=== PATIENT | male | born 1960 | race Caucasian/White ===

== ENCOUNTER 2016-10-05 13:05 | Emergency (ER) | payer BC ==
--- NOTE | 2016-10-05 13:15 | ER Document Report ---
ED Medical Screen (RME) - General Stated Complaint: BLOOD PRESSURE PROBLEMS Mode of Arrival: Medic Information source: Patient Notes: Patient presents to the emergency department with concerns over his blood pressure EMS. He also complains of nausea headache. Patient does have a history of high blood pressure. He received Zofran by EMS. bp by EMS 186/110 r , last BP 159/100, pt did take lopressor this am. Pt reports PARKER better. Reports tingling in his feet after breathing fast, per patient, gone now. PCP is veronika richardson. I have greeted and performed a rapid initial assessment of this patient. A comprehensive ED assessment and evaluation of the patient, analysis of test results and completion of the medical decision making process will be conducted by additional ED providers. TRAVEL OUTSIDE OF THE [place] IN LAST 30 DAYS: No - Related Data Allergies/Adverse Reactions: Penicillins Allergy (Severe, Verified 12/27/14 09:03) Anaphylaxis transpore tape Allergy (Mild, Uncoded 12/26/14 15:06) Generalized rash Past Medical History - Past Medical History Cardiac Medical History: Reports: Hx Coronary Artery Disease, Hx Hypertension Denies: Hx Heart Attack Pulmonary Medical History: Reports: Hx Asthma - seasonal Denies: Hx Bronchitis, Hx COPD, Hx Pneumonia Neurological Medical History: Denies: Hx Cerebrovascular Accident, Hx Seizures GI Medical History: Reports: Hx Ulcer - SPASMATIC ULCER CHILD. Denies: Hx Hepatitis, Hx Hiatal Hernia Musculoskeltal Medical History: Denies Hx Arthritis Infectious Medical History: Denies: Hx Hepatitis Past Surgical History: Reports: Hx Tonsillectomy. Denies: Hx Open Heart Surgery , Hx Pacemaker - Immunizations Hx Diphtheria, Pertussis, Tetanus Vaccination: No Physical Exam - Vital signs Vitals: Temp Pulse Resp BP Pulse Ox 98.4 F 80 16 148/85 H 97 10/05/16 13:14 10/05/16 13:14 10/05/16 13:14 10/05/16 13:14 10/05/16 13:14 Course - Vital Signs Vital signs: Temp Pulse Resp BP Pulse Ox 98.4 F 80 16 148/85 H 97 10/05/16 13:14 10/05/16 13:14 10/05/16 13:14 10/05/16 13:14 10/05/16 13:14
[2016-10-05 14:46] LABS: ABSOLUTE BASOPHILS # (AUTO) 0.1 10^3/uL (0.0-0.2); ABSOLUTE EOSINOPHILS # (AUTO) 0.1 10^3/uL (0.0-0.6); ABSOLUTE LYMPHOCYTES (AUTO) 2.2 10^3/uL (0.5-4.7); ABSOLUTE NEUT (AUTO) 5.4 10^3/uL (1.7-8.2); BASOPHILS % (AUTO) 0.8 % (0-2); EOSINOPHILS % (AUTO) 1.5 % (0-6); HEMATOCRIT 41.9 % (37.9-51.0); HEMOGLOBIN 14.6 g/dL (13.5-17.0); HGB HCT DIFFERENCE 1.9; LYMPHOCYTES % (AUTO) 25.3 % (13-45); MEAN CORPUSCULAR HEMOGLOBIN 31.3 pg (27.0-33.4); MEAN CORPUSCULAR HGB CONC 34.8 g/dL (32.0-36.0); MEAN CORPUSCULAR VOLUME 90 fl (80-97); MONOCYTES % (AUTO) 11.7 % (3-13); RED BLOOD COUNT 4.66 10^6/uL (4.35-5.55); RED CELL DISTRIBUTION WIDTH 12.8 % (11.5-14.0); SEGMENTED NEUTROPHILS % (AUTO) 60.7 % (42-78); WHITE BLOOD COUNT 8.9 10^3/uL (4.0-10.5)
[2016-10-05 15:05] LABS: ALANINE AMINOTRANSFERASE 31 U/L (21-72); ALBUMIN 4.8 g/dL (3.5-5.0); ALKALINE PHOSPHATASE 62 U/L (38-126); ANION GAP 14 (5-19); ASPARTATE AMINO TRANSFERASE 36 U/L (17-59); BILIRUBIN,DIRECT 0.3 mg/dL (0.0-0.4); BILIRUBIN,TOTAL 0.6 mg/dL (0.2-1.3); BLOOD UREA NITROGEN 12 mg/dL (7-20); CALCIUM 10.2 mg/dL (8.4-10.2); CARBON DIOXIDE 27 mmol/L (22-30); CHLORIDE 104 mmol/L (98-107); CREATININE RESULT 0.82 mg/dL (0.52-1.25); GLUCOSE 99 mg/dL (75-110); POTASSIUM 4.5 mmol/L (3.6-5.0); SODIUM 144.9 mmol/L (137-145); TOTAL PROTEIN 8.1 g/dL (6.3-8.2)
--- NOTE | 2016-10-05 15:56 | EKG REPORT ---
SEVERITY:- NORMAL ECG - SINUS RHYTHM : Confirmed by: Lyssa Joyce 05-Oct-2016 15:55:52
--- NOTE | 2016-10-05 17:33 | ER Document Report ---
ED Blood Pressure Problem - General Time seen by provider: 17:21 Mode of Arrival: Medic Information source: Patient TRAVEL OUTSIDE OF THE [place] IN LAST 30 DAYS: No - HPI Patient complains to provider of: High blood pressure Onset: Other - see HPI note Associated symptoms: Chest pain, Headache, Nausea Similar symptoms previously: No Recently seen / treated by doctor: No <BENNY RIVERS - Last Filed: 10/05/16 18:10> <EUGENE STEELE - Last Filed: 10/05/16 19:42> - General Chief Complaint: High Blood Pressure Stated Complaint: BLOOD PRESSURE PROBLEMS Notes: Patient is a 56 year old male presenting to the emergency department for hypertension. Patient states his blood pressure has gradually been getting higher and it spiked today after lunch. Patient states yesterday while cleaning around his house his blood pressure was 140/100. Today at lunch it was 170 systolic, and after lunch it was 194/110. Patient states she started feeling tired, nauseated, and had a headache. Patient states he was also breathing fast and had some tingling in his feet. Patient was given zofran via EMS which relieved his nausea. Patient states he also had some slight chest discomfort. Patient denies any CAD or family history of CAD. Patient states he saw Dr. Horvath, supervisor [facility] 2 years ago and had normal nuclear and exercise stress tests. Patient states his mother had an aortic valve replaced and hypertension. Patient has hypertension, hypercholesterolemia, and GERD. Patient is allergic to penicillin. (BENNY RIVERS) - Related Data Allergies/Adverse Reactions: Penicillins Allergy (Severe, Verified 10/05/16 13:40) Anaphylaxis transpore tape Allergy (Mild, Uncoded 10/05/16 13:40) Generalized rash Past Medical History - General Information source: Patient - Social History Smoking Status: Former Smoker Cigarette use (# per day): No Chew tobacco use (# tins/day): No Frequency of alcohol use: None Drug Abuse: None Family History: None Patient has suicidal ideation: No Patient has homicidal ideation: No - Past Medical History Cardiac Medical History: Reports: Hx Coronary Artery Disease, Hx Hypertension Pulmonary Medical History: Reports: Hx Asthma - seasonal GI Medical History: Reports: Hx Ulcer - SPASMATIC ULCER CHILD Musculoskeltal Medical History: Reports Hx Arthritis Past Surgical History: Reports: Hx Abdominal Surgery - HERNIA, Hx Tonsillectomy - Immunizations Hx Diphtheria, Pertussis, Tetanus Vaccination: No <BENNY RIVERS Last Filed: 10/05/16 18:10> Review of Systems - Review of Systems Constitutional: See HPI, Malaise EENT: No symptoms reported Cardiovascular: See HPI, Chest pain Respiratory: No symptoms reported Gastrointestinal: See HPI, Nausea Genitourinary: No symptoms reported Male Genitourinary: No symptoms reported Musculoskeletal: No symptoms reported Skin: No symptoms reported Hematologic/Lymphatic: No symptoms reported Neurological/Psychological: See HPI, Headaches -: Yes All other systems reviewed and negative <BENNY RIVERS - Last Filed: 10/05/16 18:10> Physical Exam - Vital signs Interpretation: Normal - General General appearance: Appears well, Alert In distress: Mild - HEENT Head: Normocephalic, Atraumatic Eyes: Normal Pupils: PERRL Mucous membranes: Moist - Respiratory Respiratory status: No respiratory distress Chest status: Nontender Breath sounds: Normal Chest palpation: Normal - Cardiovascular Rhythm: Regular Heart sounds: Normal auscultation Murmur: No - Abdominal Inspection: Normal Distension: No distension Bowel sounds: Normal Tenderness: Nontender Organomegaly: No organomegaly - Back Back: Normal, Nontender - Extremities General upper extremity: Normal inspection, Normal ROM, Normal strength General lower extremity: Normal inspection, Normal ROM, Normal strength - Neurological Neuro grossly intact: Yes Cognition: Normal Orientation: AAOx4 [place] Coma Scale Eye Opening: Spontaneous Alejandra Coma Scale Verbal: Oriented Alejandra Coma Scale Motor: Obeys Commands Alejandra Coma Scale Total: 15 Speech: Normal Sensory: Normal - Psychological Associated symptoms: Normal affect, Normal mood - Skin Skin Temperature: Warm Skin Moisture: Dry Skin irregularity: other - dark area of skin on the upper left back; patient states it has been present for 2 years 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 <BENNY RIVERS - Last Filed: 10/05/16 18:10> Course - Laboratory Result Diagrams: 10/05/16 14:15 10/05/16 14:15 <BENNY RIVERS - Last Filed: 10/05/16 18:10> - Laboratory Result Diagrams: 10/05/16 14:15 10/05/16 14:15 - EKG Interpretation by Id EKG shows normal: Sinus rhythm, [place], Intervals, QRS Complexes, ST-T Waves Rate: Normal - 75 Rhythm: NSR <EUGENE STEELE - Last Filed: 10/05/16 19:42> - Vital Signs Vital signs: Temp Pulse Resp BP Pulse Ox 98.4 F 68 16 166/94 H 99 10/05/16 13:14 10/05/16 18:44 10/05/16 13:14 10/05/16 18:44 10/05/16 18:44 Discharge <BENNY RIVERS - Last Filed: 10/05/16 18:10> <EUGENE STEELE - Last Filed: 10/05/16 19:42> - Discharge Clinical Impression: High blood pressure Qualifiers: Hypertension type: essential hypertension Qualified Code(s): I10 - Essential ( primary) hypertension Condition: Stable Disposition: HOME, SELF-CARE Additional Instructions: Take your blood pressure medication when you get home. Check your blood pressure tonight at bedtime, if it is still elevated and take an additional dose of your blood pressure medication. Be sure to check your blood pressure tomorrow morning before you take your morning medication dose. Call Dr. Tenorio on his cell phone at 10 AM tomorrow morning [phone] RETURN TO THE EMERGENCY ROOM IF ANY NEW OR WORSENING SYMPTOMS. Referrals: EUGENE CARRENO MD [ACTIVE STAFF] - Follow up tomorrow (CALL [phone] AT 10:00 AM FOR AN APPOINTMENT TOMORROW.) Scribe Attestation: 10/05/16 19:41 I personally performed the services described in the documentation, reviewed and edited the documentation which was dictated to the scribe in my presence, and it accurately records my words and actions. (EUGENE STEELE) Scribe Documentation - Scribe Written by Scribe:: Benny Rivers 10/05/16 18:10 acting as scribe for :: Rell <BENNY RIVERS - Last Filed: 10/05/16 18:10>
[2016-10-05 20:29] VITALS: BP 160/92
== END 2016-10-05 20:27 | disposition home or self-care (01) ==
LOC: ER 13:05
DX: I10 Essential (primary) hypertension (principal); R11.0 Nausea; R51 Headache; R53.81 Other malaise; I25.10 Atherosclerotic heart disease of native coronary artery without angina pectoris; Z87.891 Personal history of nicotine dependence; Z88.0 Allergy status to penicillin
CPT/HCPCS: 36415; 71020; 80053; 84484; 85025; 93005; 93010; 99284

== ENCOUNTER → 2018-09-05 | Outpatient (CLI) | payer BC ==
[2018-09-05 08:52] LABS: ABSOLUTE BASOPHILS # (AUTO) 0.1 10^3/uL (0.0-0.2); ABSOLUTE EOSINOPHILS # (AUTO) 0.2 10^3/uL (0.0-0.6); ABSOLUTE LYMPHOCYTES (AUTO) 2.1 10^3/uL (0.5-4.7); ABSOLUTE MONOCYTES (AUTO) 0.8 10^3/uL (0.1-1.4); ABSOLUTE NEUT (AUTO) 2.4 10^3/uL (1.7-8.2); BASOPHILS % (AUTO) 1.1 % (0-2); EOSINOPHILS % (AUTO) 3.8 % (0-6); HEMATOCRIT 38.1 % (37.9-51.0); HEMOGLOBIN 13.6 g/dL (13.5-17.0); LYMPHOCYTES % (AUTO) 37.4 % (13-45); MEAN CORPUSCULAR HEMOGLOBIN 32.1 pg (27.0-33.4); MEAN CORPUSCULAR HGB CONC 35.6 g/dL (32.0-36.0); MEAN CORPUSCULAR VOLUME 90 fl (80-97); MONOCYTES % (AUTO) 14.8 % (3-13); PLATELET COUNT 250 10^3/uL (150-450); RED BLOOD COUNT 4.23 10^6/uL (4.35-5.55); RED CELL DISTRIBUTION WIDTH 12.4 % (11.5-14.0); SEGMENTED NEUTROPHILS % (AUTO) 42.9 % (42-78); TOTAL CELLS COUNTED % (AUTO) 100 %; WHITE BLOOD COUNT 5.6 10^3/uL (4.0-10.5)
[2018-09-05 09:16] LABS: ALANINE AMINOTRANSFERASE 29 U/L (21-72); ALBUMIN 4.5 g/dL (3.5-5.0); ALKALINE PHOSPHATASE 58 U/L (38-126); ANION GAP 9 (5-19); ASPARTATE AMINO TRANSFERASE 32 U/L (17-59); BILIRUBIN,DIRECT 0.1 mg/dL (0.0-0.4); BILIRUBIN,TOTAL 0.4 mg/dL (0.2-1.3); BLOOD UREA NITROGEN 13 mg/dL (7-20); CALCIUM 9.9 mg/dL (8.4-10.2); CARBON DIOXIDE 27 mmol/L (22-30); CHLORIDE 106 mmol/L (98-107); CHOLESTEROL 195.32 mg/dL (0-200); GLUCOSE 97 mg/dL (75-110); POTASSIUM 4.7 mmol/L (3.6-5.0); SODIUM 141.9 mmol/L (137-145); TOTAL PROTEIN 7.4 g/dL (6.3-8.2); TRIGLYCERIDES 274 mg/dL (<150)
[2018-09-05 09:27] LABS: DIRECT LDL 130 mg/dL (<100)
[2018-09-05 09:33] LABS: VLDL CHOLESTEROL 54.8 mg/dL (10-31)
== END ==
LOC: OD 07:49
PROVIDERS: ATTEND Physician Assistant
DX: E78.5 Hyperlipidemia, unspecified (principal); J01.00 Acute maxillary sinusitis, unspecified; J30.89 Other allergic rhinitis; K21.9 Gastro-esophageal reflux disease without esophagitis
CPT/HCPCS: 36415; 80053; 80061; 85025

== ENCOUNTER 2019-02-23 14:10 | Emergency (ER) | payer OTHER, BC ==
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
--- NOTE | 2019-02-23 18:16 | RADIOLOGY REPORT (SQ) ---
EXAM DESCRIPTION: CT LT UPPER EXTREMITY WITHOUT COMPLETED DATE/TIME: 02/23/2019 5:29 pm REASON FOR STUDY: bone tenderness/ pain upon movement COMPARISON: None. TECHNIQUE: Axial imaging performed through the left elbow with reformatted oblique coronal and obliq ue sagittal imaging windowed for bone and soft tissues. All CT scanners at this facility use dose modulation, iterative reconstruction, and/or weight based d osing when appropriate to reduce radiation dose to as low as reasonably achievable (ALARA). [facility]: Dose Right [facility]: CareDose [facility]: Dose Right [facility]: Teradose 4D [facility]: [employer] RADIATION DOSE: CT Rad equipment meets quality standard of care and radiation dose reduction techniq ues were employed. CTDIvol: 2.6 mGy. DLP: 50 mGy-cm. mGy. LIMITATIONS: Patient arm positioning FINDINGS: SOFT TISSUES: No abnormality. BONES: Probable minimally displaced fracture of the radial head (series 401, image 22). JOINT: Probable elbow joint effusion. OTHER: No other significant finding. IMPRESSION: Probable minimally displaced fracture of the left radial head with a probable small acco mpanying elbow joint effusion. In general, MRI is the test of choice for evaluation of both suspecte d occult fracture of the elbow and the adjacent ligamentous and tendinous structures. TECHNICAL DOCUMENTATION: JOB ID: [id number] Quality ID # [id number]: Final reports with documentation of one or more dose reduction techniques (e.g., Au tomated exposure control, adjustment of the mA and/or kV according to patient size, use of iterative reconstruction technique) 2010 [employer].- All Rights Reserved Reading location - IP/workstation name: [email or web address]
[2019-02-23 18:35] VITALS: BP 163/90
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
== END 2019-02-23 18:50 | disposition home or self-care (01) ==
LOC: ER 14:10
PROC: 2W3DX1Z Immobilization of Left Lower Arm using Splint (ICD-10-PCS; principal; 2019-02-23)
DX: S52.125A Nondisplaced fracture of head of left radius, initial encounter for closed fracture (principal); M79.602 Pain in left arm; V87.7XXA Person injured in collision between other specified motor vehicles (traffic), initial encounter; I25.10 Atherosclerotic heart disease of native coronary artery without angina pectoris; I10 Essential (primary) hypertension; J45.909 Unspecified asthma, uncomplicated